=== PATIENT | male | born 1945 | race Caucasian/White ===

== ENCOUNTER 2019-08-28 10:50 | Outpatient (CLI) | payer MEDICARE ==
[~2019-08-28] VITALS: Ht 180.3 cm; Wt 112.3 kg
--- NOTE | ~2019-08-28 | HEMODYNAMI ---
PATIENT:DAVE OLVERA MEDICAL RECORD: [id number] : 43 LOCATION:[facility] ADMISSION DATE: 08/28/19 Generatedon:08/28/201913:34 Patient name: DAVE OLVERA Patient #: [id number] SSN: : 1945 Date of study: 08/28/2019 Page: Of Hemodynamic Procedure Report Patient Data Patient Demographics Procedure consent was obtained First Name: DAVE Gender: Male Last Name: WADE : 1945 Patient #: [id number] Age: 74 year(s) Race: Unknown Additional ID: [id number] Contact details [address]: [address] [place] [address] SON State: [place] City: [place] Zip code: [address] Past Medical History Allergies Allergen Reaction Date Comments Reported Sulfa drugs 08/28/2019 Iodine 08/28/2019 Admission Admission Data Admission Date: 08/28/2019 Admission Time: 10:50 Procedure Procedure Types Cath Procedure Diagnostic Procedure Cardioversion External Procedure Description Procedure Date Procedure Date: 08/28/2019 Procedure Start Time: 13:22 Procedure End Time: 13:28 Procedure Staff Name Function Rolando Galvan MD Performing Physician Rasheed Kendall RT Monitor Rasheed Kendall RT Sales Operations Manager Kaushik Webber RN Nurse Brenton Hernandez CRNA Additional personnel Richard Daniels MD Performing Physician Felipe Collado RN Nurse Procedure Data Cath Procedure Fluoroscopy Diagnostic fluoroscopy Total fluoroscopy Time: 0 time: 0 min min Diagnostic fluoroscopy Total fluoroscopy dose: 0 dose: 0 mGy mGy Procedure Complications No complications Procedure Medications Medication Administration Route Dosage 0.9% NaCl I.V. 100 ml/hr Oxygen etCO2 Nasal cannula 3 l/min Refer to Anesthesia Notes for Sedation Medications Hemodynamics Rest Heart Rate: 83 (bpm) Snapshots Pre Cath Intra NCS Post Cath Vital Signs Time Heart Resp SPO2 etCO2 NIBP (mmHg) Rhythm Pain Sedation Rate (ipm) (%) (mmHg) Status Level (bpm) 13:14:04 83 3 97 0 152/92(123) A-Fib 0 (11) 10(A) , No pain 13:18:22 75 9 99 34.7 151/102(131) A-Fib 0 (11) 10(A) , No pain 13:22:32 74 9 97 30.9 98/62(77) A-Fib 0 (11) 10(A) , No pain 13:25:48 57 12 96 30.9 113/61(98) NSR 0 (11) 9(A) , No pain Medications Time Medication Route Dose Verified Delivered Reason Notes Effective ness by by 13:22:44 0.9% NaCl I.V. 100 Felipe Wang Per ml/hr Heaven Collado physician RN RN 13:22:57 Oxygen etCO2 3 Felipe Wang for low Nasal l/min Lorigan Lorigan 02 sats cannula RN RN 13:24:07 Refer to Felipe Wang for Anesthesia Heaven Collado sedation Notes for RN RN Sedation Medications Procedure Log Time Note 12:56:55 Procedure Status Cardioversion. 12:56:58 Rasheed Kendall RT(R) sent for patient. Start room use. 12:56:59 Time tracking: Regular hours (M-F 7:00 - 5:00) 12:57:04 Plan of Care:Hemodynamics will remain stable., Cardiac rhythm will remain stable., Comfort level will be maintained., Respiratory function will remain adequate., Patient/ family verbilizes understanding of procedure., Procedure tolerated without complication., Recovers from procedure without complications.. 13:12:51 Patient received from Pre/Post Procedure Room to [facility] 3 Alert and oriented. Tansferred to table in Supine position. 13:12:54 Signed procedure consent form obtained from patient. 13:12:55 Warm blankets applied, and rmo hugger turned on for patient comfort. 13:12:56 Correct patient and procedure confirmed by team. 13:12:56 ECG and BP/O2 sat monitors applied to patient. 13:12:56 Vital chart was started 13:12:57 Baseline sample Acquired. 13:13:05 Rhythm: atrial fibrillation 13:13:07 Full Disclosure recording started 13:13:32 H&P Date Dictated: 08/08/2019 Within 30 days and on chart.. 13:14:38 Pre-procedure instructions explained to patient. 13:14:39 Pre-op teaching completed and patient verbalized understanding. 13:14:43 Family in waiting room. 13:14:46 Patient NPO since Midnight. 13:15:58 Patient allergic to Sulfa drugs 13:16:11 Patient allergic to Iodine 13:16:16 Is the patient allergic to Iodine/contrast media? Yes. 13:16:18 Was the patient premedicated? No 13:17:54 Is patient on blood thinner?Yes 13:17:58 ACC The patient was administered the following blood thiners within the last 24 hours: ACCBrilinta 13:18:01 Patient diabetic? Unknown. 13:18:03 ----Pre-sedation anethsthesia assessment.---- 13:18:06 Previous problem with sedation/anesthesia? No ? 13:18:09 Snore? Yes 13:18:11 Sleep apnea? No 13:18:12 Deviated septum? No 13:18:14 Opens mouth fully? Yes 13:18:16 Sticks out tongue? Yes 13:18:21 Airway obstruction? Yes COPD 13:18:26 Dentures? Yes OUT 13:18:31 Patient pain scale 0/10 ?. 13:18:36 IV patent on arrival in right antecubital with 0.9% NaCl at O. 13:18:40 Lab results completed and on chart. 13:18:48 Alarms reviewed by R. N. 13:18:48 Sharps counted by scrub and verified by R.N. 13:18:56 Physician arrived 13:22:12 --------ALL STOP TIME OUT------ 13:22:12 Final Timeout: patient, procedure, and site verified with staff and physician. All members of the team are in agreement. 13:22:19 Fire Safety Assessment: A--An alcohol-based skin anteseptic being used preoperatively., C--Open oxygen or nitrous oxide is being used., D--An ESU, laser, or fiber-optic light is being used. 13:22:24 Physical assessment completed. ASA score P 2 - A patient with mild systemic disease as per Richard Daniels MD. 13:22:31 Sedation plan: TIVA Medication:Propofol 13:22:35 Brenton Hernandez CRNA present and monitoring patient for TIVA. 13:22:44 0.9% NaCl 100 ml/hr I.V. was administered by Felipe Collado RN; Per physician; Verbal order read back and verified. 13:22:57 Oxygen 3 l/min etCO2 Nasal cannula was administered by Felipe Collado RN; for low 02 sats; Verbal order read back and verified. 13:23:09 Quick combo pads placed on patients chest and back. 13:24:07 Refer to Anesthesia Notes for Sedation Medications was administered by Felipe Collado RN; for sedation; Verbal order read back and verified. 13:24:40 Procedure started. 13:24:54 Defibrillator synced and charged to 200. Joules. 13:25:04 Shock delivered. 13:25:07 Patient cardioverted to sinus rhythm . 13:25:12 Procedure ended.(Physican Out) 13:26:39 Fluoroscopy time 00.00 minutes. 13:26:40 Fluoroscopy dose: 0 mGy 13:26:40 Flurop Dose total: 0 13:26:42 Dose Area Product ? mGy/cm. 13:27:47 Post procedure rhythm: sinus rhythm 13:27:51 Post procedure instruction explained to patient.Patient verbalizes understanding. 13:27:52 Procedure and supply charges have been captured, reviewed, submitted and are correct. 13:28:08 Quick Combo opened to sterile field. 13:28:26 Procedure Complication : No complications 13:28:28 Vital chart was stopped 13:28:35 Operative report dictated upon procedure completion. 13:28:35 See physician's report for complete and final results. 13:28:38 Report given to Pre/Post Procedure Room. 13:28:43 Patient transfered to Pre/Post Procedure Room with Stretcher. 13:28:46 Procedure ended. 13:28:46 Full Disclosure recording stopped 13:28:49 End room use (Document Last) Device Usage Item Manufacture Quantity Catalog Hospital Part Current Minimal Lot# / Name Number Charge Number Stock Stock Lamar al# Code [place] 1 [id number] Combo Signature Audit [place] Stage Time Signature Unsigned Intra-Procedure 08/28/2019 Felipe 1:32:24 PM Heaven EDMONDS Intra-Procedure 08/28/2019 Richard Peña 1:32:54 PM Tyree HOSKINS Intra-Procedure 08/28/2019 Rasheed Kendall RT(R) 1:33:38 PM Intra-Procedure 08/28/2019 Richard Peña 1:34:14 PM Tyree HOSKINS [facility] [address] [place] [address]
[2019-08-28] MEDS ORDERED: ISOSORBIDE MONO60 M1 PO (11:43)
[2019-08-28] MEDS ORDERED: LEVOXYL50 MCG PO (11:43)
[2019-08-28] MEDS ORDERED: SORINE80 MG PO (11:44)
[2019-08-28] MEDS ORDERED: BRILINTA90 MG PO (11:45)
[2019-08-28] MEDS ORDERED: COUMADIN5 MG PO (11:46)
[2019-08-28] MEDS ORDERED: COMBIVENT RESPIM4 GM INH (11:46)
[2019-08-28] MEDS ORDERED: CRESTOR40 MG PO (11:47)
[2019-08-28] MEDS ORDERED: COLACE50 MG/5 ML PO (11:47)
[2019-08-28] MEDS ORDERED: LASIX40 MG PO (11:48)
[2019-08-28] MEDS ORDERED: TOUJEO SOL300 UNIT/1 SC (11:49)
[2019-08-28 12:03] VITALS: BP 160/85; Ht 180.3 cm; Wt 112.3 kg
[2019-08-28 12:13] LABS: BASOPHILS 0.2 % (0-2); EOSINOPHILS 5.4 % (0-7); HEMATOCRIT 49.4 % (42.0-54.0); HEMOGLOBIN 16.4 g/dL (13.5-17.5); IMMATURE GRANULOCYTES 0.5 % (0-5); LYMPHOCYTES 21.4 % (15-50); MCH 29.5 pg (26.0-34.0); MCHC 33.2 g/dL (31.0-37.0); MCV 88.8 fL (80.0-100.0); MEAN PLATELET VOLUME 9.3 fL (7.4-10.4); MONOCYTES 9.3 % (2-11); NEUTROPHILS 63.2 % (40-80); PLATELET COUNT 204 10x3/uL (130-400); RBC 5.56 10x6/uL (4.20-6.10); RDW 15.3 % (11.5-14.5); WBC 8.3 10x3/uL (4.8-10.8)
[2019-08-28 12:24] LABS: ANION GAP 11.4 mmol/L (8-16); CALCIUM 8.9 mg/dL (8.5-10.1); CARBON DIOXIDE 29.8 mmol/L (21.0-32.0); CREATININE - SERUM 1.6 mg/dL (0.6-1.3)
[2019-08-28 12:26] LABS: INR 2.39 (0.85-1.17); PROTIME 25.4 SECONDS (11.6-15.0)
[2019-08-28 12:27] LABS: POTASSIUM - SERUM 4.2 mmol/L (3.5-5.1)
--- NOTE | 2019-08-28 13:40 | NUR ---
PT RECEIVED VIA STRETCHER FROM FLOOR MANAGER POST SUCESSFUL CARDIOVERSION. PT AWAKE AND ALERT, DENIES PAIN OR DISCOMFORT. IV PATENT INFUSING VIA R ARM PER ORDERS. PT PLACED ON CARDIAC MONITORS, HR NSR RATE 60, BP 151/81, RR 11 SAT 96 ON ROOM AIR. OJ AND SANDWICH SERVED, PT DENIES NAUSEA OR OTHER NEEDS AT THIS TIME. CALL LIGHT IN REACH, SON AT BS.
--- NOTE | 2019-08-28 14:01 | NUR ---
PT SITTING UP IN BED, DENIES PAIN OR NEEDS. HR SB RATE 58, BP 151/91, RR 11, SAT 97 ON ROOM AIR. CALL LIGHT IN REACH, SON AT BS.
--- NOTE | 2019-08-28 14:20 | NUR ---
HR NSR 60, BP 139/72. DISCHARGE INSTRUCTIONS REVIEWED W PT AND SON, BOTH VERBALIZED UNDERSTANDING. IV REMOVED W CATH INTACT, MONITORS REMOVED AND PT UP TO DRESS FOR DISCHARGE W ASSIST FROM SON.
--- NOTE | 2019-08-28 14:40 | NUR ---
PT DISCHARGED VIA WC TO SON WAITING IN PRIVATE VEHICLE. PT HAD ALL BELONGINGS AND DISCHARGE INFORMATION.
--- NOTE | 2019-08-29 14:03 | OP ---
PATIENT NAME: DAVE OLVERA MEDICAL RECORD: [id number] :43 LOCATION:D.CAT ADMISSION DATE: SURGEON: GEORGE VILLAVICENCIO MD DATE OF OPERATION: 08/28/2019 INDICATION: Atrial fibrillation. PROCEDURE: After general sedation via TIVA via anesthesia, single synchronized shock was successful in restoring atrial fibrillation to normal sinus rhythm. IMPRESSION: Successful cardioversion. COMPLICATIONS: None. DISPOSITION: To the floor, stable. 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
== END 2019-08-28 14:40 | disposition home or self-care (01) ==
LOC: D.CATH 10:50
PROVIDERS: ATTEND Internal Medicine Cardiovascular Disease
DX: I48.91 Unspecified atrial fibrillation (principal)